=== PATIENT | male | born 1970 | race American Indian/Alaskan Native ===

== ENCOUNTER 2018-08-16 20:39 | Emergency (ER) | payer SELFPAY ==
[2018-08-16] MEDS ORDERED: MOTRIN PO ONE (20:49)
--- NOTE | 2018-08-16 22:28 | XRay Report ---
FINAL REPORT PROCEDURE: XR SPINE LUMBOSACRAL 2-3V TECHNIQUE: Lumbar spine radiographs, including AP, lateral, and lumbosacral spot views. CPT 02682 HISTORY: lower back pain COMPARISON: No prior studies are available for comparison. FINDINGS: Alignment: Normal. Vertebral body heights/Disk spaces: Disc spaces are well preserved. Mild spurring at L3-4 and L4-5. Fracture(s): None. Facets: Normal. Bone mineralization: Normal. IMPRESSION: Mild degenerative change.
[2018-08-17] MEDS ORDERED: DECADRON IM ONE (01:23)
--- NOTE | 2018-08-17 01:26 | Emergency Department Report ---
ED Back Pain/Injury HPI - General Chief Complaint: Back Pain/Injury Stated Complaint: BACK PAIN Time Seen by Provider: 08/17/18 01:22 Source: patient Limitations: No Limitations - History of Present Illness Initial Comments: 47-year-old -[place] male presents to the emergency room for left lower back pain since Friday radiated to the left buttocks. Patient reports he did take his daughter's muscle relaxant prior to arrival which she reports has not helped. 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 Patient does have a past medical history of hypertension diabetes with non- insulin-dependent management. Patient denies any kidney involvement at this time. Patient denies any trauma to his back denies any urinary incontinence or fecal incontinence. Patient denies any peristasis paralysis numbness. MD Complaint: back pain -: days(s) (3) Similar Symptoms Previously: Yes Place: home Radiation: buttocks, left leg Severity scale (0 -10): 10 Quality: sharp, stabbing Consistency: constant Worsens With: movement, sitting upright Associated Symptoms: denies other symptoms - Related Data Previous Rx's Medication Instructions Recorded Last Taken Type Naproxen [Naprosyn] 500 mg PO BID #20 tablet 08/17/18 Unknown Rx Allergies Allergy/AdvReac Type Severity Reaction Status Date / Time No Known Allergies Allergy Verified 08/17/18 01:27 ED Review of Systems ROS: Stated complaint: BACK PAIN Other details as noted in HPI Musculoskeletal: back pain ED Past Medical Hx - Past Medical History Hx Hypertension: Yes Hx Diabetes: Yes - Surgical History Additional Surgical History: Bilateral ankles - Social History Smoking Status: Never Smoker Substance Use Type: None - Medications Home Medications: Home Medications Medication Instructions Recorded Confirmed Last Taken Type Naproxen [Naprosyn] 500 mg PO BID #20 tablet 08/17/18 Unknown Rx ED Physical Exam - General Limitations: No Limitations - ENT ENT exam: Present: mucous membranes moist - Neck Neck exam: Present: normal inspection - Respiratory Respiratory exam: Present: normal lung sounds bilaterally. Absent: respiratory distress - Cardiovascular Cardiovascular Exam: Present: regular rate, normal rhythm. Absent: systolic murmur, diastolic murmur, rubs, gallop - Extremities Exam Extremities exam: Present: normal inspection, full ROM. Absent: tenderness - Back Exam Back exam: Present: full ROM (painful) - Expanded Back Exam Expanded Back exam: Sciatic Notch Tenderness: Left, Positive Straight Leg Raise: Left - Neurological Exam Neurological exam: Present: alert, oriented X3 - Psychiatric Psychiatric exam: Present: normal affect, normal mood - Skin Skin exam: Present: warm, dry, intact, normal color. Absent: rash ED Course Vital Signs 08/16/18 20:44 Temperature 99 F Pulse Rate 109 H Respiratory 18 Rate Blood Pressure 129/92 O2 Sat by Pulse 99 Oximetry ED Medical Decision Making - Radiology Data Radiology results: report reviewed FINAL REPORT PROCEDURE: XR SPINE LUMBOSACRAL 2-3V TECHNIQUE: Lumbar spine radiographs, including AP, lateral, and lumbosacral spot views. CPT 45083 HISTORY: lower back pain COMPARISON: No prior studies are available for comparison. FINDINGS: Alignment: Normal. Vertebral body heights/Disk spaces: Disc spaces are well preserved. Mild spurring at L3-4 and L4-5. Fracture(s): None. Facets: Normal. Bone mineralization: Normal. IMPRESSION: Mild degenerative change. Transcribed By: BRP Dictated By: BRANDON ANTONIO MD Electronically Authenticated By: BRANDON ANTONIO MD Signed Date/Time: 08/16/182226 DD/ 26 TD/TT: 08/16/182226 - Medical Decision Making Patient has been evaluated by this provider fast track. Ibuprofen given for pain management. The patient dexamethasone 8 mg IM. Discussed and informed patient that with the steroid and may cause his blood sugar to rise a little. Patient checked his blood sugar prior to arrival was 106. Patient is currently taking metformin in [facility]. Discussed the patient I will give him a handout on sciatica exercises. With discharge patient on naproxen 500 mg twice a day. And have patient follow up with his primary care provider. Critical care attestation.: If time is entered above; I have spent that time in minutes in the direct care of this critically ill patient, excluding procedure time. ED Disposition Clinical Impression: Lumbago with sciatica, left side Qualifiers: Chronicity: acute Back pain laterality: left Qualified Code(s): M54.42 - Lumbago with sciatica, left side Disposition: - TO HOME OR SELFCARE Is pt being admited?: No Does the pt Need Aspirin: No Condition: Stable Instructions: Lumbar Radiculopathy (ED), Sciatica (ED) Additional Instructions: Please take naproxen as prescribed. Please incorporate exercise as instructed. Please follow up with her primary care provider if his symptoms persist or gets worse. Be aware that she blood sugar may elevate from the steroids that was given to you in the emergency room. Steroid stays in her system for about 1 -2 days so you blood sugars may be mildly elevated due that time. Prescriptions: Naproxen [Naprosyn] 500 mg PO BID #20 tablet Referrals: PRIMARY CARE, [Primary Care Provider] - 3-5 Days Forms: Work/School Release Form(ED), Accompanied Note
[2018-08-17] MEDS ORDERED: TORADOL ONE (02:10)
[2018-08-17] MEDS ORDERED: TORADOL IM ONE (02:22)
[2018-08-17 02:23] VITALS: BP 124/83
== END 2018-08-17 02:24 | disposition home or self-care (01) ==
LOC: ED 20:39
DX: M54.42 Lumbago with sciatica, left side (principal); I10 Essential (primary) hypertension; E11.9 Type 2 diabetes mellitus without complications
CPT/HCPCS: 72100; 96372; 99283; J1100; J1885